=== PATIENT | female | born 1940 | race Caucasian/White ===

== ENCOUNTER 2018-08-28 18:07 | Emergency (ER) | payer OTHER ==
[2018-08-28 18:14] VITALS: TEMP 97.4; BMI 24.9
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
[2018-08-28] MEDS: MACROBID PO STA (22:05)
[2018-08-28 23:09] VITALS: BP 132/57
--- NOTE | 2018-08-29 01:48 | DI ---
EXAM: AP single view of the chest. HISTORY: Mental status change. FINDINGS: The bones are unremarkable. The cardiac silhouette and pulmonary vasculature are within no rmal limits. The costophrenic angles are clear. There is eventration of the right hemidiaphragm. T here is minimal left basilar atelectasis and/or pneumonia. Impression: Minimal left basilar atelectasis and/or pneumonia.
== END 2018-08-28 23:09 | disposition home or self-care (01) ==
LOC: ED 18:07
DX: R41.82 Altered mental status, unspecified (principal); N30.00 Acute cystitis without hematuria; E78.5 Hyperlipidemia, unspecified; F03.90 Unspecified dementia, unspecified severity, without behavioral disturbance, psychotic disturbance, mood disturbance, and anxiety; Z79.899 Other long term (current) drug therapy
CPT/HCPCS: 36415; 80053; 81001; 84550; 85025; 87040; 87086; 87186; 87502; 87801; 99283

== ENCOUNTER 2018-12-09 16:00 | Outpatient (CLI) | payer OTHER | END 2018-12-09 16:22 | disposition short-term general hospital (02) | LOC: AMBL 16:00 | PROVIDERS: ATTEND Emergency Medicine | DX: S01.112A Laceration without foreign body of left eyelid and periocular area, initial encounter (principal); S09.90XA Unspecified injury of head, initial encounter; R22.0 Localized swelling, mass and lump, head; W05.0XXA Fall from non-moving wheelchair, initial encounter; R00.0 Tachycardia, unspecified ==